=== PATIENT | male | born 2005 | race Caucasian/White ===

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

== ENCOUNTER 2024-01-03 08:00 | Outpatient (CLI) | payer BC, MEDICAID ==
[2024-01-03 20:39] LABS: CHLAMYDIA TRACHOMATIS DNA NEGATIVE (NEGATIVE); NEISSERIA GONORRHOEAE DNA NEGATIVE (NEGATIVE); TRICHOMONAS VAGINALIS DNA NEGATIVE (NEGATIVE)
== END 2024-01-03 23:59 | disposition home or self-care (01) ==
LOC: LAB.S 08:00
PROVIDERS: ATTEND Physician Assistant Medical
DX: Z20.2 Contact with and (suspected) exposure to infections with a predominantly sexual mode of transmission (principal)
CPT/HCPCS: 87491; 87591; 87661

== ENCOUNTER 2024-01-03 11:56 | Outpatient (CLI) | payer MEDICAID, BC ==
[2024-01-05 04:08] LABS: HBsAG SCREEN Negative (Negative); HEPATITIS B SURFACE AB QUANT <3.1 mIU/mL (Immunity>9.9); RPR Non Reactive (Non Reactive)
[2024-01-05 09:08] LABS: HIV SCREEN 4TH GENERATION Non Reactive (Non Reactive)
[2024-01-05 11:08] LABS: HCV AB Non Reactive (Non Reactive)
== END 2024-01-03 11:57 | disposition home or self-care (01) ==
LOC: LAB.S 11:56
PROVIDERS: ATTEND Physician Assistant Medical
DX: R61 Generalized hyperhidrosis (principal); Z20.2 Contact with and (suspected) exposure to infections with a predominantly sexual mode of transmission
CPT/HCPCS: 36415; 86317; 86592; 86803; 87340; 87389